=== PATIENT | male | born 1975 | race American Indian/Alaskan Native ===

== ENCOUNTER 2021-11-08 21:50 | Emergency (ER) | payer SELFPAY ==
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
[2021-11-09] MEDS: IBUPROFEN 800 MG TAB PO ONE (10:36)
[2021-11-09] MEDS: predniSONE 20 MG TAB PO NR (10:36)
[2021-11-09] MEDS: CYCLOBENZAPRINE 10 MG TAB PO ONE (10:36)
[2021-11-09 10:43] VITALS: BP 134/87
== END 2021-11-09 10:45 | disposition home or self-care (01) ==
LOC: ED 21:50
DX: M79.18 Myalgia, other site (principal); I10 Essential (primary) hypertension; V89.2XXA Person injured in unspecified motor-vehicle accident, traffic, initial encounter; Y93.89 Activity, other specified; Y92.89 Other specified places as the place of occurrence of the external cause; Y99.8 Other external cause status
CPT/HCPCS: 99282